=== PATIENT | male | born 1975 | race Caucasian/White ===

== ENCOUNTER → 2020-07-15 06:50 | Outpatient (CLI) | payer OTHER, SELFPAY ==
--- NOTE | 2020-07-15 | DI.ECHO.S_ITS ---
[facility]---------+ [facility] +---------+ : : [address] : : : : [id number] : : : : Phone: [phone]---------+ Echocardiogram Report + + :Name: ADRIANNE HILLS Study Date: 07/15/2020 Height: 72 in : :[facility] Weight: 224 lb : : Gender: Male BSA: 2.2 m2 : :: 1975 Age: 44 yrs BP: 171/112 mmHg: :Reason For Study: ATRIAL FIBRILLATION : :Ordering Physician: FERNANDO, : :STANLEY Performed By: Katie Romano : :Referring: STANLEY DRAPER : + + Interpretation Summary 1) Normal left ventricular size with low normal function (EF about 50%). 2) Normal right ventricular size and function. 3) No significant valvular abnormalities. 4) Hypertension present during the study (BP 171/112mmHg). 5) No prior Echo available for comparison. Procedure: A two-dimensional transthoracic echocardiogram with color flow and Doppler was performed. The study quality was technically adequate. There is no prior echocardiogram noted for this patient. The patient was in atrial fibrillation with heart rates between 85-106 bpm during the exam. Left Ventricle: The left ventricle is normal in size. Left ventricular wall thickness is mildly increased. Left ventricular ejection fraction is estimated to be 50 +/- 5%. Diastolic parameters suggest a pseudonormalization pattern, consistent with probable elevated filling pressures. Right Ventricle: The right ventricle is normal in size and function. Atria: The left atrial size is normal. Right atrial size is normal. There is no Doppler evidence for an interatrial shunt. Mitral Valve: The mitral valve is normal in structure and function. There is trace mitral regurgitation. Aortic Valve: The aortic valve is trileaflet. The aortic valve opens well. There is no aortic valve stenosis. There is trace aortic regurgitation. Tricuspid Valve: The tricuspid valve is normal in structure and function. There is trace tricuspid regurgitation. Pulmonary artery pressures cannot be estimated because of the lack of a measurable TR jet velocity but the IVC suggests a CVP of around 3 mmHg. Pulmonic Valve: The pulmonic valve leaflets are thin and pliable; valve motion is normal. There is trace pulmonic regurgitation. Great Vessels: The aortic root is normal size. The ascending aorta is at the upper limits of normal in size. The IVC is of normal diameter and collapses greater than 50% with a sniff. This suggests a low right atrial pressure of 3 mm Hg. Pericardium/ Pleura There is no pericardial effusion. There is no pleural effusion. MMode/2D Measurements & Calculations LVIDd: 5.2 cm LVOT diam: 2.2 cm LVIDs: 3.7 cm Ao root diam: 3.3 cm FS: 27.8 % asc Aorta Diam: 3.4 cm EPSS: 1.3 cm IVSd: 1.2 cm LVPWd: 1.2 cm LV mendez. diameter/BSA (cm/m^2): 2.3 LV sys. diameter/BSA (cm/m^2): 1.7 LA A2 area: 14.9 cm2 RA long axis: 5.7 cm LA A4 area: 17.8 cm2 RA area: 17.7 cm2 LA length (vol): 5.5 cm RA vol: 47.2 ml LA vol: 40.7 ml RA : 21.1 ml/m2 LA vol index: 18.2 ml/m2 IVC diam: 1.4 cm RVD1 (basal): 3.8 cm TAPSE: 1.8 cm Doppler Measurements & Calculations Ao V2 max: 116.1 cm/sec LVOT Max Howard: 83.2 cm/sec Ao V2 mean: 80.5 cm/sec LV V1 max P.8 mmHg Ao max P.4 mmHg LV V1 VTI: 11.7 cm Ao mean P.9 mmHg GISSELL(I,D): 2.5 cm2 Ao V2 VTI: 17.7 cm GISSELL(V,D): 2.7 cm2 sev ratio: 0.66 GISSELL indexed to BSA (cm^2/m^2): 1.1 MV E max howard: 82.2 cm/sec PA V2 max: 77.9 cm/sec MV A max howard: 2.3 cm/sec PA V2 mean: 46.9 cm/sec MV E/A: 36.3 PA mean P.1 mmHg Med Peak E' Howard: 4.9 cm/sec E/E' med: 16.8 Lat Peak E' Howard: 7.0 cm/sec E/E' lat: 11.7 E/e' average: 14.3 MV dec time: 0.13 sec SV(LVOT): 44.7 ml Reading Physician:10:56 AM
== END ==
PROVIDERS: Referring Provider Internal Medicine Cardiovascular Disease; Visit Provider Internal Medicine Cardiovascular Disease
DX: I48.19 Other persistent atrial fibrillation (principal); R03.0 Elevated blood-pressure reading, without diagnosis of hypertension
CPT/HCPCS: 93306